=== PATIENT | female | born 1970 | race Caucasian/White ===

== ENCOUNTER 2017-01-24 06:08 | Day surgery (SDC) ==
[2017-01-22 09:26] LABS: MANUAL DIFF NEEDED? NO
[2017-01-22 09:41] LABS: BASO% 0.4 % (0.0-0.8); EOS# 0.17 X1000 (0.0-0.7); EOS% 2.3 % (0.0-10.0); HEMATOCRIT 30.6 % (37.0-47.0); HEMOGLOBIN 9.9 g/dL (12.0-16.0); IMM GRAN# 0.02 X1000 (0.0-0.04); IMM GRAN% 0.3 % (0.0-0.5); LYMPH# 1.85 X1000 (1.2-3.4); LYMPH% 25.4 % (20.5-51.1); MCH 31.2 PG (27-31); MCHC 32.4 g/dL (33-37); MCV 96.5 FL (81-99); MONO# 0.85 X1000 (0.11-0.59); MONO% 11.7 % (1.7-9.3); MPV 9.5 FL (7.4-10.4); NEUT% 59.9 % (42.2-75.2); PLT 263 X1000 (130-400); RBC 3.17 XMIL (4.2-5.4)
[2017-01-22 10:02] LABS: TOTAL BILIRUBIN 0.74 mg/dL (0.20-1.00)
[2017-01-24] MEDS ORDERED: PEPCID ONE (07:16)
[2017-01-24] MEDS ORDERED: VALIUM ONE (07:17)
[2017-01-24] MEDS ORDERED: KEFZOL 1 GM/D5W 50 ML ONE (07:17)
[2017-01-24] MEDS ORDERED: LR 1,000 ML ONE ×3 (07:31→15:22)
[2017-01-24] MEDS ORDERED: SODIUM CHLORIDE 0.9% ONE (08:03)
[2017-01-24] MEDS ORDERED: MARCAINE 0.25% PF/EPI 1:200,000 ONE (08:03)
--- NOTE | 2017-01-24 10:01 | Diag Imaging Result Document ---
PROCEDURE NAME: OPERATIVE CHOLANGIOGRAM - 01/24/2017 INTRAOPERATIVE CHOLANGIOGRAM: FINDINGS: There is no evidence of filling defect or obstruction of the common bile duct. There is contrast in the duodenum. IMPRESSION: No evidence of retained stones.
[2017-01-24] MEDS ORDERED: SODIUM CHLORIDE 0.9% INJ PRN (10:47)
[2017-01-24] MEDS ORDERED: XANAX PO PRN (10:47)
[2017-01-24] MEDS ORDERED: PHENERGAN IV PRN (10:47)
[2017-01-24] MEDS ORDERED: NORCO-10 PO PRN (10:47)
[2017-01-24] MEDS ORDERED: NORCO-10 ONE (10:49)
[2017-01-24 11:28] VITALS: BP 168/99
--- NOTE | 2017-01-24 12:53 | OPERATIVE NOTE ---
PROCEDURE DATE: 01/24/2017 PROCEDURE PERFORMED: 1. Laparoscopic cholecystectomy with operative cholangiogram. 2. Biopsy of the node of Calot. 3. Biopsy of the right lobe of the liver. 4. Excision of left axillary subcutaneous nodule. SURGEON: Royer Earl MD GENERAL DUTY NURSE: Evelin Andrews PREOPERATIVE DIAGNOSES: 1. Symptomatic cholelithiasis. 2. History of metastatic lung cancer and left axillary nodule. POSTOPERATIVE DIAGNOSES: 1. Symptomatic cholelithiasis. 2. History of metastatic lung cancer and left axillary nodule. 3. Metastatic disease to the liver. FINDINGS: The surface of the liver and gallbladder was spotted with suspected metastases. The cholangiogram revealed free flow in the duodenum and a normal size common duct, but there was irregularity to the wall of the duct. DESCRIPTION OF PROCEDURE: Satisfactory general endotracheal anesthesia achieved, the abdomen was prepped and draped in a sterile fashion. We anesthetized skin at the base of the umbilicus, made a vertical incision there, dissected down to the fascia, scored the fascia, introduced an 11 trocar Optiview technique into the abdominal cavity. We insufflated through this trocar. We introduced the videolaparoscope under direct visualization introduced a 5 trocar midclavicular line, a 5 trocar near the anterior axillary line, and an 11 mm trocar in the midepigastrium. The findings on the appearance of the gallbladder and liver were noted above. We placed the patient in reverse Trendelenburg and turned her to the left. We grasped the fundus of the gallbladder with a ratcheted Allis forceps, reflected it cephalad, and began dissection of the triangle of Calot. The node of Calot was somewhat firm so we removed it as a biopsy. We further dissected the triangle of Calot and identified the cystic duct. We clipped it near its junction with the gallbladder. We incised the cystic duct and introduced a Walt catheter. We shot the cholangiogram where the findings above were noted. We then removed the cholangiogram catheter, clipped the cystic duct on the opposite side of cystic ductotomy x2 and transected it. The cystic artery was included within the clips of the duct. We then used the electrocautery spatula to dissect the gallbladder away from the liver. We then biopsied the right lobe of the liver on the surface with the biopsy forceps. Hemostasis was satisfactory. We placed the gallbladder within the bag and delivered it out of the abdominal cavity through the umbilical trocar site. We looked back, hemostasis was satisfactory. We did not feel like a drain was needed. We placed a Darshan- Melissa wound closure device through the epigastric trocar, and passed a 2-0 Polysorb through it to help close the peritoneum. We then desufflated and removed our other trocars. We closed the fascia at the umbilicus with 2-0 Polysorb fascial stitch. We closed the skin at each incision with 4-0 Polysorb subcuticular stitches. Sterile OpSite were applied. We then extended the patient's left arm, prepped and draped the left axilla. We marked the skin with a marking pen then anesthetized with 0.25 Marcaine with epinephrine. We made an elliptical incision around the subcutaneous nodule and excised it in toto. We achieved satisfactory hemostasis with electrocautery. We placed 3-0 Polysorb in the subcutaneous tissue. We closed the skin with a 4-0 Polysorb subcuticular stitch. Telfa and sterile OpSite was applied. She tolerated procedure satisfactorily, was sent to the recovery room in satisfactory condition.
[2017-01-24] MEDS ORDERED: FENTANYL ONE (14:26)
[2017-01-24] MEDS ORDERED: DIPRIVAN 1% ONE (14:26)
[2017-01-24] MEDS ORDERED: NEOSTIGMINE ONE (15:21)
[2017-01-24] MEDS ORDERED: NORCURON ONE (15:22)
[2017-01-24] MEDS ORDERED: ROBINUL ONE (15:22)
[2017-01-24] MEDS ORDERED: LABETALOL (DOSE) ONE (15:22)
[2017-01-24] MEDS ORDERED: QUELICIN (DOSE) ONE (15:22)
[2017-01-24] MEDS ORDERED: XYLOCAINE-MPF 2% ONE (15:22)
[2017-01-24] MEDS ORDERED: DECADRON ONE (15:22)
[2017-01-25] MEDS ORDERED: ERGOCALCIFEROL 2000 UNIT PO SCH (09:00)
[2017-01-25] MEDS ORDERED: FOLIC ACID PO SCH (09:00)
[2017-01-25] MEDS ORDERED: MULTIVITAMIN PO SCH (09:00)
[2017-01-25] MEDS ORDERED: ASCORBIC ACID 1000 MG PO SCH (09:00)
== END 2017-01-24 11:30 | disposition home or self-care (01) ==
LOC: OPS 06:08
PROVIDERS: ATTEND Surgery
DX: K80.10 Calculus of gallbladder with chronic cholecystitis without obstruction (principal); C34.90 Malignant neoplasm of unspecified part of unspecified bronchus or lung; C78.89 Secondary malignant neoplasm of other digestive organs; C77.3 Secondary and unspecified malignant neoplasm of axilla and upper limb lymph nodes; C77.2 Secondary and unspecified malignant neoplasm of intra-abdominal lymph nodes; C78.7 Secondary malignant neoplasm of liver and intrahepatic bile duct
CPT/HCPCS: 74300; 82247; 84075; 85025; 88304; 88305; 88307; 88313; J0330; J0690; J1100; J3010; J7120; Q9966; J2710